=== PATIENT | male | born 1955 | race Hispanic/Latino ===

== ENCOUNTER 2017-11-09 15:34 | Inpatient (IN) | payer BC ==
[2017-11-09] MEDS ORDERED: Enoxaparin 120 mg Syringe SC STA (16:58)
[2017-11-09] MEDS ORDERED: Sodium Chloride 0.9% 1,000 ML IV SCH (17:00)
[2017-11-09 17:20] LABS: ABG ALLEN TEST YES; ARTERIAL BLOOD GAS HCO3 26.4 mmol/L (21-28); ARTERIAL BLOOD GAS O2 SAT 99.3 % (95-98); ARTERIAL BLOOD GAS PCO2 36 mm/Hg (35-45); ARTERIAL BLOOD GAS PH 7.46 (7.35-7.45); ARTERIAL BLOOD GAS PO2 81 mm/Hg (80-100); ARTERIAL BLOOD GAS TCO2 26.7 mmol/L (22-28)
--- NOTE | 2017-11-09 17:33 | RAD ---
HISTORY: Deep vein thrombosis COMPARISON: No prior. TECHNIQUE: Chest PA and lateral FINDINGS: LUNGS: No active pulmonary disease. PLEURA: No significant pleural effusion identified. No pneumothorax apparent. CARDIOVASCULAR: Normal. OSSEOUS STRUCTURES: No significant abnormalities. VISUALIZED UPPER ABDOMEN: Normal. OTHER FINDINGS: None. IMPRESSION: No active disease.
[2017-11-09 17:51] LABS: BASO # 0.1 K/uL (0.0-0.2); BASO % 1.1 % (0.0-2.0); EOS # 0.1 K/uL (0.0-0.7); EOS % 1.6 % (0.0-4.0); HEMOGLOBIN 15.5 g/dL (12.0-18.0); LYMPH # 2.2 K/uL (1.0-4.3); LYMPH % 23.2 % (20.0-40.0); MEAN CELL VOLUME 90.5 fl (80.0-94.0); MEAN CORPUSCULAR HEMOGLOBIN 30.1 pg (27.0-31.0); MEAN CORPUSCULAR HGB CONC 33.3 g/dL (33.0-37.0); MEAN PLATELET VOLUME 8.5 fl (7.2-11.7); MONO # 0.9 K/uL (0.0-0.8); MONO % 9.6 % (0.0-10.0); NEUT # 6.2 K/uL (1.8-7.0); NEUT % 64.5 % (50.0-75.0); NRBC % 0.1 % (0.0-0.0); RBC 5.15 Mil/uL (4.40-5.90); WHITE BLOOD COUNT 9.6 K/uL (4.8-10.8)
[2017-11-09 17:53] LABS: BLOOD UREA NITROGEN 26 mg/dl (9-20); CALCIUM 9.1 mg/dL (8.4-10.2); GFR AFRICAN-AMERICAN > 60; GFR NON-AFRICAN AMERICAN > 60
[2017-11-09 17:57] LABS: PROTHROMBIN TIME 11.9 Seconds (9.8-13.1)
[2017-11-09 17:58] LABS: INR 1.1 (0.9-1.2); PARTIAL THROMBOPLASTIN TIME 31.2 Seconds (25.6-37.1)
--- NOTE | 2017-11-09 17:58 | ED PDOC ---
Lower Extremity Pain/Injury Time Seen by Provider: 11/09/17 16:33 Chief Complaint (Nursing): Lower Extremity Problem/Injury Chief Complaint (Provider): DVT of right leg History Per: Patient History/Exam Limitations: no limitations Onset/Duration Of Symptoms: Other (x2-3 weeks) Current Symptoms Are (Timing): Still Present Additional Complaint(s): 62 year old male, with past medical history of HTN, presented to ED with deep vein thrombosis of the right leg. Patient began experiencing leg swelling with onset of 2-3 weeks but right leg swelling would not go away. He had an ultrasound of the right leg revealing an extensive DVT of the entire right leg. Persistent swelling present with no paint except for the thigh area. Denied chills, CP, fever, and SOB. Past Medical History Reviewed: Historical Data, Nursing Documentation, Vital Signs Vital Signs: Last Vital Signs Temp 97 F L 11/09/17 17:34 Pulse 69 11/09/17 17:34 Resp 19 11/09/17 17:34 BP 130/80 11/09/17 17:34 Pulse Ox 98 11/09/17 17:34 - Medical History PMH: HTN - Surgical History Surgical History: No Surg Hx - Family History Family History: States: Unknown Family Hx - Social History Current smoker - smoking cessation education provided: No Alcohol: None Drugs: Denies - Home Medications Home Medications: Ambulatory Orders Medication Instructions Recorded Furosemide [Lasix] 20 mg PO DAILY 11/09/17 Nebivolol [Bystolic] 10 mg PO DAILY 11/09/17 Potassium Chloride [Klor-Con M20] 20 meq PO DAILY 11/09/17 - Allergies Allergies/Adverse Reactions: Allergies Allergy/AdvReac Type Severity Reaction Status Date / Time No Known Allergies Allergy Verified 05/21/16 19:59 Review of Systems ROS Statement: Except As Marked, All Systems Reviewed And Found Negative Constitutional: Negative for: Fever, Chills Cardiovascular: Negative for: Chest Pain Respiratory: Negative for: Shortness of Breath Physical Exam - Reviewed Nursing Documentation Reviewed: Yes Vital Signs Reviewed: Yes - ECG O2 Sat by Pulse Oximetry: 98
--- NOTE | 2017-11-09 18:07 | ED PDOC ---
Lower Extremity Pain/Injury Time Seen by Provider: 11/09/17 16:33 Chief Complaint (Nursing): Lower Extremity Problem/Injury Chief Complaint (Provider): Deep Vein Thrombosis of right leg History Per: Patient History/Exam Limitations: no limitations Onset/Duration Of Symptoms: Other (x2-3 weeks) Current Symptoms Are (Timing): Still Present Additional Complaint(s): 62 year old male, with past medical history of HTN, presented to ED with deep vein thrombosis of the right leg. Patient began experiencing leg swelling with onset of 2-3 weeks but right leg swelling would not go away. He had an ultrasound of the right leg revealing an extensive DVT of the entire right leg. Persistent swelling present with no paint except for the thigh area. Denied chills, CP, and fever. Past Medical History Reviewed: Historical Data, Nursing Documentation, Vital Signs Vital Signs: Last Vital Signs Temp 97 F L 11/09/17 17:34 Pulse 69 11/09/17 17:34 Resp 19 11/09/17 17:34 BP 130/80 11/09/17 17:34 Pulse Ox 98 11/09/17 17:34 - Medical History PMH: HTN - Surgical History Surgical History: No Surg Hx - Family History Family History: States: Unknown Family Hx - Social History Current smoker - smoking cessation education provided: No Alcohol: None Drugs: Denies - Home Medications Home Medications: Ambulatory Orders Medication Instructions Recorded Furosemide [Lasix] 20 mg PO DAILY 11/09/17 Nebivolol [Bystolic] 10 mg PO DAILY 11/09/17 Potassium Chloride [Klor-Con M20] 20 meq PO DAILY 11/09/17 - Allergies Allergies/Adverse Reactions: Allergies Allergy/AdvReac Type Severity Reaction Status Date / Time No Known Allergies Allergy Verified 05/21/16 19:59 Review of Systems ROS Statement: Except As Marked, All Systems Reviewed And Found Negative Constitutional: Negative for: Fever, Chills Cardiovascular: Negative for: Chest Pain Respiratory: Negative for: Shortness of Breath Physical Exam - Reviewed Nursing Documentation Reviewed: Yes Vital Signs Reviewed: Yes - Physical Exam Appears: Positive for: Non-toxic, No Acute Distress Head Exam: Positive for: ATRAUMATIC, NORMAL INSPECTION, NORMOCEPHALIC Skin: Positive for: Normal Color, Warm, Dry Eye Exam: Positive for: Normal appearance ENT: Positive for: Normal ENT Inspection Neck: Positive for: Normal, Painless ROM Cardiovascular/Chest: Positive for: Regular Rate, Rhythm. Negative for: Murmur Respiratory: Positive for: Normal Breath Sounds. Negative for: Wheezing, Respiratory Distress Gastrointestinal/Abdominal: Positive for: Normal Exam, Soft. Negative for: Tenderness Back: Positive for: Normal Inspection. Negative for: L CVA Tenderness, R CVA Tenderness Extremity: Positive for: Swelling (Right lower extremity). Negative for: Calf Tenderness Neurologic/Psych: Positive for: Alert, Oriented. Negative for: Motor/Sensory Deficits - Laboratory Results Result Diagrams: 11/09/17 17:20 11/09/17 17:20 - ECG O2 Sat by Pulse Oximetry: 98 (RA) Pulse Ox Interpretation: Normal Disposition - Clinical Impression Clinical Impression: Deep vein thrombosis (DVT) of distal vein of right lower extremity - Patient ED Disposition Is Patient to be Admitted: Yes Doctor Will See Patient In The: Hospital - Disposition Disposition: Transfer of Care Disposition Time: 17:10 Condition: FAIR - Pt Status Changed To: Hospital Disposition Of: Inpatient - Admit Certification Admit to Inpatient:: After my assessment, the patient will require hospitalization for at least two midnights. This is because of the severity of symptoms shown, intensity of services needed, and/or the medical risk in this patient being treated as an outpatient. - POA Present On Arrival: None
--- NOTE | 2017-11-10 10:32 | CP.PCM.HP ---
History of Present Illness - History of Present Illness History of Present Illness: 62 YR OLD MALE ADMITTED WITH SWELLING OF R LEG AND FINDING OF R LEG DVT ON OUT PT VENOUS DOPPLER. DENIES PAIN,CHEST PAINS OR SOB HE IS ADMITTED FOR ANICOAGULATION THERAPY AND EVALUATION FOR CAUSE OF DVT Present on Admission - Present on Admission Any Indicators Present on Admission: Yes History of DVT/PE: Yes Past Patient History - Infectious Disease Hx of Infectious Diseases: None - Past Medical History & Family History Past Medical History?: Yes Pertinent Family History: HYPERTENSION - Past Social History Smoking Status: Never Smoked - CARDIAC Hx Hypertension: Yes - HEMATOLOGICAL/ONCOLOGICAL Hx AIDS: No Hx Human Immunodeficiency Virus (HIV): No - MUSCULOSKELETAL/RHEUMATOLOGICAL Hx Falls: No - GASTROINTESTINAL Hx Gastrointestinal Disorders: No Hx Bowel Surgery: No Hx Clostridium Difficile: No Hx Colitis: No Hx Colostomy: No Hx Constipation: No Hx Crohn's Disease: No Hx Diarrhea: No Hx Diverticulitis: No Hx Esophageal Varices: No Hx Fatty Liver Disease: No Hx Gall Bladder Disease: No Hx Gastritis: No Hx Gastroesophageal Reflux: No Hx Hemorrhoids: No Hx Ileostomy: No Hx Irritable Bowel: No Hx Liver Failure: No Hx Nausea: No Hx Pancreatitis: No HX Swallowing Problems: No Hx Ulcer: No Hx Vomiting: No - GENITOURINARY/GYNECOLOGICAL Hx Genitourinary Disorders: No Hx Bladder Cancer: No Hx Bladder Stone: No Hx Hematuria: No Hx Incontinence: No Hx Prostate Cancer: No Hx Prostate Problems: No Hx Reproductive Disorders: No Hx Sexually Transmitted Disorders: No Hx Urinary Tract Infection: No - PSYCHIATRIC Hx Substance Use: No - SURGICAL HISTORY Hx Surgeries: No Hx Abdominal Aortic Aneurysm Repair: No Hx Amputation: No Hx Angiogram: No Hx Angioplasty: No Hx Appendectomy: No Hx Arteriovenous Shunt: No Hx Arthroscopy: No Hx Bile Duct Stent: No Hx Breast Biopsy: No Hx Cataract Extraction: No Hx Cardiac Catheterization: No Hx Carotid Endarterectomy: No Hx Section: No Hx Cholecystectomy: No Hx Coronary Artery Bypass Graft: No Hx Coronary Stent: No Hx Dilation and Curettage: No Hx Eye Surgery: No Hx Femoral-Popliteal Bypass Graft: No Hx Gastric Bypass Surgery: No Hx Herniorrhaphy: No Hx Hysterectomy: No Hx Joint Replacement: No Hx Kidney Transplant: No Hx Liver Transplant: No Hx Mastectomy: No Hx Musculoskeletal Surgery: No Hx Open Heart Surgery: No Hx Open Reduction Internal Fixation: No Hx Orthopedic Surgery: No Hx Parathyroidectomy: No Hx Penile Implant: No Hx Pulmonary Surgery: No Hx Splenectomy: No Hx Thyroidectomy: No Hx Tonsillectomy: No Hx Tubal Ligation: No Hx Valve Replacement: No Hx Vascular Surgery: No Hx Vascular Access Device: No - ANESTHESIA Hx Anesthesia: No Hx Anesthesia Reactions: No Hx Malignant Hyperthermia: No Has any member of the family had a problem w/ anesthesia?: No Meds Allergies/Adverse Reactions: Allergies Allergy/AdvReac Type Severity Reaction Status Date / Time No Known Allergies Allergy Verified 05/21/16 19:59 Physical Exam - Constitutional Appears: Well - Head Exam Head Exam: ATRAUMATIC, NORMAL INSPECTION, NORMOCEPHALIC - Eye Exam Eye Exam: EOMI, Normal appearance, PERRL Pupil Exam: NORMAL ACCOMODATION, PERRL - ENT Exam ENT Exam: Mucous Membranes Moist, Normal Exam - Neck Exam Neck exam: Positive for: Normal Inspection - Respiratory Exam Respiratory Exam: Clear to Auscultation Bilateral, NORMAL BREATHING PATTERN - Cardiovascular Exam Cardiovascular Exam: REGULAR RHYTHM - GI/Abdominal Exam GI & Abdominal Exam: Normal Bowel Sounds, Soft. absent: Tenderness - Rectal Exam Rectal Exam: NORMAL INSPECTION - Exam Exam: Circumcision, NORMAL INSPECTION External exam: NORMAL EXTERNAL EXAM Speculum exam: NORMAL SPECULUM EXAM Bimanual exam: NORMAL BIMANUAL EXAM - Extremities Exam Extremities exam: Positive for: pedal edema Additional comments: R LEG EDEMA NO CALF TENDERNESS - Back Exam Back exam: NORMAL INSPECTION - Neurological Exam Neurological exam: Alert, CN II-XII Intact, Normal Gait, Oriented x3, Reflexes Normal - Psychiatric Exam Psychiatric exam: Normal Affect, Normal Mood - Skin Skin Exam: Dry, Intact, Normal Color, Warm Results - Vital Signs Recent Vital Signs: Last Vital Signs Temp 98.6 F 11/10/17 08:06 Pulse 65 11/10/17 08:06 Resp 18 11/10/17 08:06 BP 120/73 11/10/17 08:06 Pulse Ox 96 11/10/17 08:06 - Labs Result Diagrams: 11/09/17 17:20 11/09/17 17:20 Labs: Laboratory Results - last 24 hr 11/09/17 11/09/17 11/09/17 17:00 17:20 17:20 WBC 9.6 RBC 5.15 Hgb 15.5 Hct 46.6 MCV 90.5 MCH 30.1 MCHC 33.3 RDW 14.0 Plt Count 191 MPV 8.5 Neut % (Auto) 64.5 Lymph % (Auto) 23.2 [place] % (Auto) 9.6 Eos % (Auto) 1.6 Baso % (Auto) 1.1 Neut # (Auto) 6.2 Lymph # (Auto) 2.2 [place] # (Auto) 0.9 H Eos # (Auto) 0.1 Baso # (Auto) 0.1 PT INR APTT pCO2 36 pO2 81 HCO3 26.4 ABG pH 7.46 H ABG Total CO2 26.7 ABG O2 Saturation 99.3 H ABG Base Excess 2.0 Edwin Test Yes ABG Potassium 3.6 A-a O2 Difference 24.0 Sodium 138.0 141 Chloride 106.0 104 Glucose 112 H Lactate 0.8 FiO2 21.0 Potassium 3.8 Carbon Dioxide 23 Anion Gap 18 BUN 26 H Creatinine 1.1 Est GFR ( Amer) > 60 Est GFR (Non-Af Amer) > 60 Random Glucose 107 Calcium 9.1 Arterial Blood Potassium 3.6 11/09/17 17:20 WBC RBC Hgb Hct MCV MCH MCHC RDW Plt Count MPV Neut % (Auto) Lymph % (Auto) [place] % (Auto) Eos % (Auto) Baso % (Auto) Neut # (Auto) Lymph # (Auto) [place] # (Auto) Eos # (Auto) Baso # (Auto) PT 11.9 INR 1.1 APTT 31.2 pCO2 pO2 HCO3 ABG pH ABG Total CO2 ABG O2 Saturation ABG Base Excess Edwin Test ABG Potassium A-a O2 Difference Sodium Chloride Glucose Lactate FiO2 Potassium Carbon Dioxide Anion Gap BUN Creatinine Est GFR ( Amer) Est GFR (Non-Af Amer) Random Glucose Calcium Arterial Blood Potassium Assessment & Plan - Assessment and Plan (Free Text) Assessment: R DVT HYPERTENSION S/P EYE SURGERY Plan: LOVENOX SC HEME EVAL D/C HOME ON ORAL ANTICOAGULATION
[2017-11-10] MEDS: Enoxaparin 120 mg Syringe SC SCH ×2 (11:26→21:50)
--- NOTE | 2017-11-10 13:07 | CARD ---
APPROVED REPORT EKG Measurement Heart [id number] <Conclusion> Normal sinus rhythm Left axis deviation Moderate voltage criteria for LVH, may be normal variant Abnormal ECG
--- NOTE | 2017-11-10 15:26 | CP.PCM.CON ---
History of Present Illness - History of Present Illness History of Present Illness: 62 year old male with a history of HTN, admitted with RLE DVT. The patient reports to swelling of his right leg for about 3 weeks time. He denies pain in the leg. He notes this has happened in the past before but resolved on its own. He brought this to the attention of his PMD who ordered LE venous duplex which revealed RLE DVT. He was told to report to the hospital and placed on therapeutic anticoagulation. He denies immobility and trauma to his leg. He denies chest pain and shortness of breath. Past medical history: HTN Past surgical history: B/L detached retina Family history: Mother had SD/CVA Social history: Denies tobacco, alcohol, and illicit drug use. Allergies: NKA Review of systems: All remaining review of systems including HEENT, cardiovascular, respiratory, gastrointestinal, genitourinary, musculoskeletal, dermatologic, neurologic, and psychiatric are negative unless mentioned in the HPI. Past Patient History - Infectious Disease Hx of Infectious Diseases: None - Past Medical History & Family History Past Medical History?: Yes - Past Social History Smoking Status: Never Smoked - CARDIAC Hx Hypertension: Yes - HEMATOLOGICAL/ONCOLOGICAL Hx AIDS: No Hx Human Immunodeficiency Virus (HIV): No - MUSCULOSKELETAL/RHEUMATOLOGICAL Hx Falls: No - GASTROINTESTINAL Hx Gastrointestinal Disorders: No Hx Bowel Surgery: No Hx Clostridium Difficile: No Hx Colitis: No Hx Colostomy: No Hx Constipation: No Hx Crohn's Disease: No Hx Diarrhea: No Hx Diverticulitis: No Hx Esophageal Varices: No Hx Fatty Liver Disease: No Hx Gall Bladder Disease: No Hx Gastritis: No Hx Gastroesophageal Reflux: No Hx Hemorrhoids: No Hx Ileostomy: No Hx Irritable Bowel: No Hx Liver Failure: No Hx Nausea: No Hx Pancreatitis: No HX Swallowing Problems: No Hx Ulcer: No Hx Vomiting: No - GENITOURINARY/GYNECOLOGICAL Hx Genitourinary Disorders: No Hx Bladder Cancer: No Hx Bladder Stone: No Hx Hematuria: No Hx Incontinence: No Hx Prostate Cancer: No Hx Prostate Problems: No Hx Reproductive Disorders: No Hx Sexually Transmitted Disorders: No Hx Urinary Tract Infection: No - PSYCHIATRIC Hx Substance Use: No - SURGICAL HISTORY Hx Surgeries: No Hx Abdominal Aortic Aneurysm Repair: No Hx Amputation: No Hx Angiogram: No Hx Angioplasty: No Hx Appendectomy: No Hx Arteriovenous Shunt: No Hx Arthroscopy: No Hx Bile Duct Stent: No Hx Breast Biopsy: No Hx Cataract Extraction: No Hx Cardiac Catheterization: No Hx Carotid Endarterectomy: No Hx Section: No Hx Cholecystectomy: No Hx Coronary Artery Bypass Graft: No Hx Coronary Stent: No Hx Dilation and Curettage: No Hx Eye Surgery: No Hx Femoral-Popliteal Bypass Graft: No Hx Gastric Bypass Surgery: No Hx Herniorrhaphy: No Hx Hysterectomy: No Hx Joint Replacement: No Hx Kidney Transplant: No Hx Liver Transplant: No Hx Mastectomy: No Hx Musculoskeletal Surgery: No Hx Open Heart Surgery: No Hx Open Reduction Internal Fixation: No Hx Orthopedic Surgery: No Hx Parathyroidectomy: No Hx Penile Implant: No Hx Pulmonary Surgery: No Hx Splenectomy: No Hx Thyroidectomy: No Hx Tonsillectomy: No Hx Tubal Ligation: No Hx Valve Replacement: No Hx Vascular Surgery: No Hx Vascular Access Device: No - ANESTHESIA Hx Anesthesia: No Hx Anesthesia Reactions: No Hx Malignant Hyperthermia: No Has any member of the family had a problem w/ anesthesia?: No Meds Allergies/Adverse Reactions: Allergies Allergy/AdvReac Type Severity Reaction Status Date / Time No Known Allergies Allergy Verified 05/21/16 19:59 - Medications Medications: Current Medications Enoxaparin Sodium (Lovenox) 110 mg SC Q12 [facility] PRN Reason: Protocol Last Admin: 11/10/17 11:26 Dose: 110 mg Sodium Chloride (Sodium Chloride 0.9%) 1,000 mls @ 125 mls/hr IV .Q8H [facility] Last Admin: 11/09/17 17:32 Dose: 125 mls/hr Metoprolol Tartrate (Lopressor) 6.25 mg PO Q12 [facility] Last Admin: 11/10/17 13:34 Dose: 6.25 mg Physical Exam - Head Exam Head Exam: ATRAUMATIC - Eye Exam Eye Exam: Normal appearance - ENT Exam ENT Exam: Mucous Membranes Dry - Respiratory Exam Respiratory Exam: NORMAL BREATHING PATTERN - Cardiovascular Exam Cardiovascular Exam: +S1, +S2 - GI/Abdominal Exam GI & Abdominal Exam: Normal Bowel Sounds - Extremities Exam Extremities exam: Positive for: pedal edema - Neurological Exam Neurological exam: Oriented x3 - Psychiatric Exam Psychiatric exam: Normal Affect, Normal Mood - Skin Skin Exam: Warm Results - Vital Signs Recent Vital Signs: Last Vital Signs Temp 97.9 F 11/10/17 12:21 Pulse 65 11/10/17 13:34 Resp 18 11/10/17 12:21 BP 136/74 11/10/17 13:34 Pulse Ox 96 11/10/17 12:21 - Labs Result Diagrams: 11/09/17 17:20 11/09/17 17:20 Labs: Laboratory Results - last 24 hr 11/09/17 11/09/17 11/09/17 17:00 17:20 17:20 WBC 9.6 RBC 5.15 Hgb 15.5 Hct 46.6 MCV 90.5 MCH 30.1 MCHC 33.3 RDW 14.0 Plt Count 191 MPV 8.5 Neut % (Auto) 64.5 Lymph % (Auto) 23.2 [place] % (Auto) 9.6 Eos % (Auto) 1.6 Baso % (Auto) 1.1 Neut # (Auto) 6.2 Lymph # (Auto) 2.2 [place] # (Auto) 0.9 H Eos # (Auto) 0.1 Baso # (Auto) 0.1 PT INR APTT pCO2 36 pO2 81 HCO3 26.4 ABG pH 7.46 H ABG Total CO2 26.7 ABG O2 Saturation 99.3 H ABG Base Excess 2.0 Edwin Test Yes ABG Potassium 3.6 A-a O2 Difference 24.0 Sodium 138.0 141 Chloride 106.0 104 Glucose 112 H Lactate 0.8 FiO2 21.0 Potassium 3.8 Carbon Dioxide 23 Anion Gap 18 BUN 26 H Creatinine 1.1 Est GFR ( Amer) > 60 Est GFR (Non-Af Amer) > 60 Random Glucose 107 Calcium 9.1 Arterial Blood Potassium 3.6 11/09/17 17:20 WBC RBC Hgb Hct MCV MCH MCHC RDW Plt Count MPV Neut % (Auto) Lymph % (Auto) [place] % (Auto) Eos % (Auto) Baso % (Auto) Neut # (Auto) Lymph # (Auto) [place] # (Auto) Eos # (Auto) Baso # (Auto) PT 11.9 INR 1.1 APTT 31.2 pCO2 pO2 HCO3 ABG pH ABG Total CO2 ABG O2 Saturation ABG Base Excess Edwin Test ABG Potassium A-a O2 Difference Sodium Chloride Glucose Lactate FiO2 Potassium Carbon Dioxide Anion Gap BUN Creatinine Est GFR ( Amer) Est GFR (Non-Af Amer) Random Glucose Calcium Arterial Blood Potassium Assessment & Plan (1) Deep vein thrombosis (DVT) of distal vein of right lower extremity Assessment and Plan: unprovoked will perform partial inherited thrombophilia w/u; protein C+S and antithrombin III to be checked in [address] C/A/P with rule out occult malignancy on therapeutic lovenox pt agreeable to outpatient Eliquis (10mg BID x 7 days loading, followed by 5mg BID); 3 months minimum duration Thank you for this interesting consult. Status: Acute
[2017-11-10] MEDS ORDERED: Iohexol 240 (50 ml) PO ONE (17:40)
[2017-11-10] MEDS ORDERED: Iohexol 300 100 ML IJ ONE (19:48)
--- NOTE | 2017-11-10 22:03 | CT ---
EXAM: CT Chest With Intravenous Contrast CLINICAL HISTORY: 62 years old, male; Signs and symptoms; Other: Rule out noccult malignancy; Other: Dvt. Hypertension; Additional info: Rule out occult malignancy; Unprovoked dvt TECHNIQUE: Axial computed tomography images of the chest with intravenous contrast. All CT scans at this facility use one or more dose reduction techniques, viz.: automated exposure control; ma/kV adjustment per patient size (including targeted exams where dose is matched to indication; i.e. head); or iterative reconstruction technique. Coronal and sagittal reformatted images were created and reviewed. CONTRAST: 98 mL of OMNIPAQUE-300 administered intravenously. COMPARISON: No relevant prior studies available. FINDINGS: Lungs: Minimal atelectasis/scarring. No consolidation. Few pulmonary nodules, up to 0.4 cm. Pleural space: No pneumothorax. No significant effusion. Heart: No cardiomegaly. No significant pericardial effusion. Coronary artery calcifications. Mediastinum: Small hiatal hernia. Bones/joints: Degenerative changes of spine. No acute fracture. Soft tissues: Unremarkable. Vasculature: Mild atherosclerotic disease. No aneurysm. Lymph nodes: No pathologically enlarged lymph nodes. IMPRESSION: 1. Pulmonary nodules. For low-risk patients, no follow-up is necessary. For high-risk patients (smoking history or other known risk factors) an optional CT at 12 months could be performed. 2. Incidental/non-acute findings are described above. EXAM: CT Abdomen and Pelvis With Intravenous Contrast CLINICAL HISTORY: 62 years old, male; Signs and symptoms; Other: Rule out noccult malignancy; Other: Dvt. Hypertension; Additional info: Rule out occult malignancy; Unprovoked dvt TECHNIQUE: Axial computed tomography images of the abdomen and pelvis with intravenous contrast. All CT scans at this facility use one or more dose reduction techniques, viz.: automated exposure control; ma/kV adjustment per patient size (including targeted exams where dose is matched to indication; i.e. head); or iterative reconstruction technique. Coronal and sagittal reformatted images were created and reviewed. CONTRAST: 98 mL of OMNIPAQUE-300 administered intravenously. COMPARISON: No relevant prior studies available. FINDINGS: ABDOMEN: Liver: Fatty infiltration. Gallbladder and bile ducts: Gallstones. No significant ductal dilation. Pancreas: No ductal dilation. No mass. Spleen: Lobulated spleen. No splenomegaly. Adrenals: No mass. Kidneys and ureters: Mild stranding about kidneys, nonspecific. Probable 1.5 cm RIGHT renal cyst. Few too small to characterize lesions within kidneys. No hydronephrosis. Stomach and bowel: Few scattered diverticula within colon. No associated inflammatory stranding. No definite mural thickening. No obstruction. PELVIS: Appendix: Normal caliber. No inflammation. Bladder: Unremarkable. Reproductive: Mildly enlarged prostate. ABDOMEN and PELVIS: Intraperitoneal space: No significant fluid collection. No free air. Bones/joints: Degenerative changes of spine. Chronic L5 pars defects with anterolisthesis. No acute fracture. Soft tissues: Large right inguinal hernia containing fat/mesentery and small bowel. Small LEFT inguinal hernia containing fat. Small umbilical hernia containing fat. Vasculature: Limited evaluation for venous thrombosis due to phase of enhancement. Enlargement of right common femoral/superficial femoral veins with adjacent stranding. Mild atherosclerotic disease. No aneurysm. Lymph nodes: No pathologically enlarged lymph nodes. IMPRESSION: 1. Enlargement of right common femoral/superficial femoral veins with adjacent stranding likely related to DVT. 2. Prostate enlargement. Followup as clinically warranted. 3. Cholelithiasis. 4. Large right inguinal hernia containing fat/mesentery and bowel. 5. Incidental/non-acute findings are described above.
[2017-11-11 00:02] VITALS: RESP 18
[2017-11-11 05:06] VITALS: TEMP 98.4
[2017-11-11 07:59] VITALS: BP 138/75; O2SAT 98
[2017-11-11] MEDS: Enoxaparin 120 mg Syringe SC SCH (09:01)
[2017-11-11 09:02] VITALS: PULSE 65
--- NOTE | 2017-11-11 11:33 | CP.PCM.DIS ---
Provider - Provider Date of Admission: 11/09/17 16:59 Attending physician: Woodrow Vallecillo MD Time Spent in preparation of Discharge (in minutes): 35 Diagnosis - Discharge Diagnosis (1) Hypertension Status: Acute (2) Deep vein thrombosis (DVT) of distal vein of right lower extremity Status: Acute Hospital Course - Lab Results Lab Results: Most Recent Lab Values WBC 9.6 K/uL (4.8-10.8) 11/09/17 17:20 RBC 5.15 Mil/uL (4.40-5.90) 11/09/17 17:20 Hgb 15.5 g/dL (12.0-18.0) 11/09/17 17:20 Hct 46.6 % (35.0-51.0) 11/09/17 17:20 MCV 90.5 fl (80.0-94.0) 11/09/17 17:20 MCH 30.1 pg (27.0-31.0) 11/09/17 17:20 MCHC 33.3 g/dL (33.0-37.0) 11/09/17 17:20 RDW 14.0 % (11.5-14.5) 11/09/17 17:20 Plt Count 191 K/uL (130-400) 11/09/17 17:20 MPV 8.5 fl (7.2-11.7) 11/09/17 17:20 Neut % (Auto) 64.5 % (50.0-75.0) 11/09/17 17:20 Lymph % (Auto) 23.2 % (20.0-40.0) 11/09/17 17:20 [place] % (Auto) 9.6 % (0.0-10.0) 11/09/17 17:20 Eos % (Auto) 1.6 % (0.0-4.0) 11/09/17 17:20 Baso % (Auto) 1.1 % (0.0-2.0) 11/09/17 17:20 Neut # (Auto) 6.2 K/uL (1.8-7.0) 11/09/17 17:20 Lymph # (Auto) 2.2 K/uL (1.0-4.3) 11/09/17 17:20 [place] # (Auto) 0.9 K/uL (0.0-0.8) H 11/09/17 17:20 Eos # (Auto) 0.1 K/uL (0.0-0.7) 11/09/17 17:20 Baso # (Auto) 0.1 K/uL (0.0-0.2) 11/09/17 17:20 PT 11.9 Seconds (9.8-13.1) 11/09/17 17:20 INR 1.1 (0.9-1.2) 11/09/17 17:20 APTT 31.2 Seconds (25.6-37.1) 11/09/17 17:20 pCO2 36 mm/Hg (35-45) 11/09/17 17:00 pO2 81 mm/Hg (80-100) 11/09/17 17:00 HCO3 26.4 mmol/L (21-28) 11/09/17 17:00 ABG pH 7.46 (7.35-7.45) H 11/09/17 17:00 ABG Total CO2 26.7 mmol/L (22-28) 11/09/17 17:00 ABG O2 Saturation 99.3 % (95-98) H 11/09/17 17:00 ABG Base Excess 2.0 mmol/L (-2.0-3.0) 11/09/17 17:00 Edwin Test Yes 11/09/17 17:00 ABG Potassium 3.6 mmol/L (3.6-5.2) 11/09/17 17:00 A-a O2 Difference 24.0 mm/Hg 11/09/17 17:00 Sodium 138.0 mmol/L (132-148) 11/09/17 17:00 Chloride 106.0 mmol/L (98-107) 11/09/17 17:00 Glucose 112 mg/dL (75-110) H 11/09/17 17:00 Lactate 0.8 mmol/L (0.7-2.1) 11/09/17 17:00 FiO2 21.0 % 11/09/17 17:00 Sodium 141 mmol/l (132-148) 11/09/17 17:20 Potassium 3.8 MMOL/L (3.6-5.0) 11/09/17 17:20 Chloride 104 mmol/L (98-107) 11/09/17 17:20 Carbon Dioxide 23 mmol/L (22-30) 11/09/17 17:20 Anion Gap 18 (10-20) 11/09/17 17:20 BUN 26 mg/dl (9-20) H 11/09/17 17:20 Creatinine 1.1 mg/dl (0.8-1.5) 11/09/17 17:20 Est GFR ( Amer) > 60 11/09/17 17:20 Est GFR (Non-Af Amer) > 60 11/09/17 17:20 Random Glucose 107 mg/dL (75-110) 11/09/17 17:20 Calcium 9.1 mg/dL (8.4-10.2) 11/09/17 17:20 Arterial Blood Potassium 3.6 mmol/L (3.6-5.2) 11/09/17 17:00 - Hospital Course Hospital Course: SWELLING OF R LEG IMPROVED NO LEG PAIN NO SOB Discharge Exam - Head Exam Head Exam: ATRAUMATIC - Eye Exam Eye Exam: EOMI, Normal appearance, PERRL Pupil Exam: NORMAL ACCOMODATION, PERRL - GI/Abdominal Exam GI & Abdominal Exam: Normal Bowel Sounds - Rectal Exam Rectal Exam: NORMAL INSPECTION - Extremities Exam Extremities exam: pedal edema Additional comments: PEDAL EDEMA LESS - Neurological Exam Neurological exam: Alert, CN II-XII Intact, Normal Gait, Oriented x3, Reflexes Normal - Psychiatric Exam Psychiatric exam: Normal Affect, Normal Mood - Skin Skin Exam: Dry, Intact, Normal Color, Warm Discharge Plan - Follow Up Plan Condition: FAIR Disposition: HOME/ ROUTINE Patient education suggested?: Yes Additional Instructions: DISCHARGE ON ELIQUIS 10 MG BID X 10 DAYS,THEN 5 MG BID X [address] VALLECILLO IN 1 WEEK
[2017-11-14 08:19] LABS: B2 GLYCOPROTEIN I AB(IGA) <9 SAU (<=20); B2 GLYCOPROTEIN I AB(IGG) <9 SGU (<=20); B2 GLYCOPROTEIN I AB(IGM) <9 SMU (<=20)
[2017-11-14 21:20] LABS: PHOSPHATIDYLSERINE AB IGA <20 U/mL (<20); PHOSPHATIDYLSERINE AB IGG <10 U/mL (<10); PHOSPHATIDYLSERINE AB IGM <25 U/mL (<25)
[2017-11-14 23:11] LABS: CARDIOLIPIN AB (IGA) <11 APL (<=11); CARDIOLIPIN AB (IGG) <14 GPL (<=14); CARDIOLIPIN AB (IGM) <12 MPL (<=12)
== END 2017-11-11 12:12 | disposition home or self-care (01) | DRG 301 ==
LOC: H.ER 15:34 → H.ERHOLD 16:59 → H.TEL 21:41
PROVIDERS: ADMIT Internal Medicine Pulmonary Disease; ATTEND Internal Medicine Pulmonary Disease
DX: I82.4Z1 Acute embolism and thrombosis of unspecified deep veins of right distal lower extremity (principal); I10 Essential (primary) hypertension